=== PATIENT | female | born 1995 ===

== ENCOUNTER 2019-11-13 15:42 | Inpatient (IN) | payer MEDICAID ==
[2019-11-13 16:58] LABS: BLOOD UREA NITROGEN,BUN 10 mg/dL (7.0-18.0); CARBON DIOXIDE,CO2 21.9 mmol/L (21.0-32.0); CHLORIDE,CL 104 mmol/L (98-107); GLUCOSE RANDOM 91 mg/dL (74-106); POTASSIUM,K 4.4 mmol/L (3.5-5.1); SODIUM,NA 136 mmol/L (136-145)
[2019-11-13] MEDS ORDERED: Water For Irrigation,Sterile 1,000 ML Container IRR PRN (18:28)
[2019-11-13] MEDS ORDERED: Sodium Chloride 0.9% 2.5 ML Syringe FLUSH PRN (18:28)
[2019-11-13] MEDS ORDERED: Lidocaine 1% 50 ML MDV INJECT PRN (18:28)
[2019-11-13] MEDS ORDERED: Sodium Chloride 0.9% 10 ML SDV IV PRN (18:28)
[2019-11-13] MEDS ORDERED: Terbutaline 1 MG/ML SDV SUBCUT PRN (18:28)
[2019-11-13] MEDS ORDERED: Sodium Chloride 0.9% 10 ML Syringe FLUSH PRN (18:28)
[2019-11-13] MEDS ORDERED: Misoprostol 200 MCG Tab PO PRN (18:28)
[2019-11-13] MEDS ORDERED: Methylergonovine 0.2 MG/1 ML Amp IM PRN (18:28)
[2019-11-13] MEDS ORDERED: Butorphanol 1 MG/ML SDV IVPUSH PRN (18:28)
[2019-11-13] MEDS ORDERED: Tranexamic Acid 1,000 MG in Sodium Chloride 0.9% 100 ML IV PRN (18:28)
[2019-11-13] MEDS ORDERED: Ondansetron 4 MG/2 ML SDV IVPUSH PRN (18:28)
[2019-11-13] MEDS ORDERED: Carboprost Tromethamine 250 MCG/1 ML Amp IM PRN (18:28)
[2019-11-13] MEDS ORDERED: Nalbuphine 10 MG/1 ML Vial IVPUSH PRN (18:28)
[2019-11-13] MEDS ORDERED: Oxytocin/0.9 % Sodium Chloride 30 UNIT/500 ML BAG IV SCH ×2 (18:30)
[2019-11-13] MEDS ORDERED: NIFEdipine 30 MG Tab.ER PO ONE (18:32)
[2019-11-13] MEDS ORDERED: Misoprostol 25 MCG (1/4 of 100 MCG) Tab PO ONE (18:35)
[2019-11-13] MEDS ORDERED: NIFEdipine 30 MG Tab.ER ONE (18:54)
[2019-11-13] MEDS: Misoprostol 25 MCG (1/4 of 100 MCG) Tab VAG PRN (20:20)
[2019-11-14 00:49] LABS: BLOOD UREA NITROGEN,BUN 8 mg/dL (7.0-18.0); CARBON DIOXIDE,CO2 20.2 mmol/L (21.0-32.0); CHLORIDE,CL 106 mmol/L (98-107); GLUCOSE RANDOM 83 mg/dL (74-106); POTASSIUM,K 3.6 mmol/L (3.5-5.1); SODIUM,NA 138 mmol/L (136-145)
[2019-11-14] MEDS: Lactated Ringers 1,000 ML IV SCH ×4 (00:55→15:00)
[2019-11-14] MEDS: Misoprostol 25 MCG (1/4 of 100 MCG) Tab PO SCH ×3 (01:15→11:04)
[2019-11-14] MEDS: Misoprostol 25 MCG (1/4 of 100 MCG) Tab VAG PRN ×4 (01:18→11:05)
--- NOTE | 2019-11-14 13:12 | PCM.LDHP ---
L&D History of Present Illness - General Date of Service: 11/13/19 Admit Problem/Dx: Patient Status Order with Admit Dx/Problem 11/13/19 15:58 Patient Status [ADT] Routine 11/13/19 18:28 Patient Status [ADT] Routine Admission Diagnosis/Problem Admission Diagnosis/Problem - planned Source of Information: Patient History Limitations: Reports: No Limitations - History of Present Illness Pain Score: 5 Improves with: Reports: None Worsens with: Reports: None Associated Symptoms: Reports: N - Related Data Allergies/Adverse Reactions: Allergies Allergy/AdvReac Type Severity Reaction Status Date / Time No Known Allergies Allergy Verified 11/13/19 15:57 Past Medical History - Past Health History Medical/Surgical History: Denies Medical/Surgical History ER TECH History: Reports: Neurological History: Reports: Seizure - Infectious Disease History Infectious Disease History: Reports: Hepatitis B Social & Family History - Family History Family Medical History: Unobtainable - Tobacco Use Smoking Status *Q: Never Smoker Second Hand Smoke Exposure: No - Caffeine Use Caffeine Use: Reports: None - Recreational Drug Use Recreational Drug Use: No H&P Review of Systems - Review of Systems: Review Of Systems: See Below General: Reports: No Symptoms HEENT: Reports: No Symptoms Pulmonary: Reports: No Symptoms Cardiovascular: Reports: No Symptoms Gastrointestinal: Reports: No Symptoms Genitourinary: Reports: No Symptoms Musculoskeletal: Reports: No Symptoms Skin: Reports: No Symptoms Psychiatric: Reports: No Symptoms Neurological: Reports: No Symptoms Hematologic/Lymphatic: Reports: No Symptoms Immunologic: Reports: No Symptoms L&D Exam - Exam Exam: See Below - Vital Signs Vital Signs: Last Vital Signs Temp Pulse Resp BP 167/120 H 11/13/19 18:57 Pulse Ox Weight: 80.286 kg - OB Specific Fundal Height In cm: 36 Contraction Intensity: Mild Movement: Active Heart Tones: Present Presentation: Vertex - Exam General: Alert, Oriented HEENT: PERRLA, Conjunctiva Clear, EACs Clear, EOMI, Hearing Intact, Mucosa Moist & G. L. Garcia, Nares Patent, Normal Nasal Septum, Posterior Pharynx Clear, TMs Clear Neck: Supple, Trachea Midline Lungs: Clear to Auscultation, Normal Respiratory Effort Cardiovascular: Regular Rate, Regular Rhythm GI/Abdominal Exam: Normal Bowel Sounds, Soft, Non-Tender, No Organomegaly, No Distention, No Abnormal Bruit, No Mass, Pelvis Stable Rectal Exam: Normal Exam, Normal Rectal Tone Genitourinary: Normal external exam, Normal bimanual exam, Normal speculum exam Back Exam: Normal Inspection, Full Range of Motion Extremities: Normal Inspection, Normal Range of Motion, Non-Tender, No Pedal Edema, Normal Capillary Refill Skin: Warm, Dry, Intact Neurological: Cranial Nerves Intact, Reflexes Equal Bilateral Psychiatric: Alert, Normal Affect, Normal Mood - Patient Data Lab Results Last 24 hrs: Laboratory Results - last 24 hr 11/13/19 11/13/19 11/13/19 Range/Units 16:21 16:21 16:21 WBC 5.48 (4.0-11.0) K/uL RBC 3.78 L (4.30-5.90) M/uL Hgb 10.8 L (12.0-16.0) g/dL Hct 32.8 L (36.0-46.0) % MCV 86.8 (80.0-98.0) fL MCH 28.6 (27.0-32.0) pg MCHC 32.9 (31.0-37.0) g/dL RDW Std Deviation 42.5 (28.0-62.0) fl RDW Coeff of Ronda 13 (11.0-15.0) % Plt Count 222 (150-400) K/uL MPV 10.10 (7.40-12.00) fL Neut % (Auto) 53.8 (48.0-80.0) % Lymph % (Auto) 26.6 (16.0-40.0) % Ritchie % (Auto) 18.1 H (0.0-15.0) % Eos % (Auto) 1.3 (0.0-7.0) % Baso % (Auto) 0.2 (0.0-1.5) % Neut # (Auto) 3.0 (1.4-5.7) K/uL Lymph # (Auto) 1.5 (0.6-2.4) K/uL Ritchie # (Auto) 1.0 H (0.0-0.8) K/uL Eos # (Auto) 0.1 (0.0-0.7) K/uL Baso # (Auto) 0.0 (0.0-0.1) K/uL Nucleated RBC % 0.0 /100WBC Nucleated RBCs # 0 K/uL Sodium 136 (136-145) mmol/L Potassium 4.4 (3.5-5.1) mmol/L Chloride 104 (98-107) mmol/L Carbon Dioxide 21.9 (21.0-32.0) mmol/L BUN 10 (7.0-18.0) mg/dL Creatinine 0.7 (0.6-1.0) mg/dL Est Cr Clr Drug Dosing 131.74 mL/min Estimated GFR (MDRD) > 60.0 ml/min Glucose 91 (74-106) mg/dL Uric Acid 4.2 (2.6-7.2) mg/dL Calcium 8.5 (8.5-10.1) mg/dL Total Bilirubin 0.2 (0.2-1.0) mg/dL AST 27 (15-37) IU/L ALT 32 (14-63) IU/L Alkaline Phosphatase 177 H (46-116) U/L Total Protein 6.3 L (6.4-8.2) g/dL Albumin 2.4 L (3.4-5.0) g/dL Globulin 3.9 (2.6-4.0) g/dL Albumin/Globulin Ratio 0.6 L (0.9-1.6) Ur Random Creatinine mg/dL U Random Total Protein (<11.9) mg/dL Protein/Creatinin Ratio Blood Type O NEGATIVE Antibody Screen NEGATIVE 11/13/19 11/14/19 11/14/19 Range/Units 16:40 00:22 00:22 WBC 5.42 (4.0-11.0) K/uL RBC 3.65 L (4.30-5.90) M/uL Hgb 10.6 L (12.0-16.0) g/dL Hct 31.0 L (36.0-46.0) % MCV 84.9 (80.0-98.0) fL MCH 29.0 (27.0-32.0) pg MCHC 34.2 (31.0-37.0) g/dL RDW Std Deviation 38.6 (28.0-62.0) fl RDW Coeff of Ronda 13 (11.0-15.0) % Plt Count 208 (150-400) K/uL MPV 9.80 (7.40-12.00) fL Neut % (Auto) (48.0-80.0) % Lymph % (Auto) (16.0-40.0) % Ritchie % (Auto) (0.0-15.0) % Eos % (Auto) (0.0-7.0) % Baso % (Auto) (0.0-1.5) % Neut # (Auto) (1.4-5.7) K/uL Lymph # (Auto) (0.6-2.4) K/uL Ritchie # (Auto) (0.0-0.8) K/uL Eos # (Auto) (0.0-0.7) K/uL Baso # (Auto) (0.0-0.1) K/uL Nucleated RBC % /100WBC Nucleated RBCs # K/uL Sodium 138 (136-145) mmol/L Potassium 3.6 (3.5-5.1) mmol/L Chloride 106 (98-107) mmol/L Carbon Dioxide 20.2 L (21.0-32.0) mmol/L BUN 8 (7.0-18.0) mg/dL Creatinine 0.6 (0.6-1.0) mg/dL Est Cr Clr Drug Dosing 153.15 mL/min Estimated GFR (MDRD) > 60.0 ml/min Glucose 83 (74-106) mg/dL Uric Acid 4.4 (2.6-7.2) mg/dL Calcium 8.1 L (8.5-10.1) mg/dL Total Bilirubin 0.1 L (0.2-1.0) mg/dL AST 25 (15-37) IU/L ALT 32 (14-63) IU/L Alkaline Phosphatase 166 H (46-116) U/L Total Protein 5.9 L (6.4-8.2) g/dL Albumin 2.1 L (3.4-5.0) g/dL Globulin 3.8 (2.6-4.0) g/dL Albumin/Globulin Ratio 0.6 L (0.9-1.6) Ur Random Creatinine 15.4 mg/dL U Random Total Protein 20.1 H (<11.9) mg/dL Protein/Creatinin Ratio 1.3 Blood Type Antibody Screen Result Diagrams: 11/14/19 00:22 11/14/19 00:22 Problem List Initiated/Reviewed/Updated: Yes Orders Last 24hrs: Active Orders 24 hr Category Date Time Status Patient Status [ADT] Routine ADT 11/13/19 18:28 Active Bedrest Bathroom Privileges [RC] ASDIRECTED Care 11/13/19 18:28 Active Communication Order [RC] ASDIRECTED Care 11/13/19 18:28 Active Communication Order [RC] ASDIRECTED Care 11/13/19 18:28 Active Communication Order [RC] ASDIRECTED Care 11/13/19 18:28 Active Heart Tones [RC] CONTINUOUS Care 11/13/19 18:28 Active Non Stress Test [RC] PER UNIT ROUTINE Care 11/13/19 15:58 Active Non Stress Test [RC] PER UNIT ROUTINE Care 11/13/19 18:28 Active May Shower [RC] ASDIRECTED Care 11/13/19 18:28 Active Notify Provider [RC] PRN Care 11/13/19 18:28 Active Notify Provider [RC] PRN Care 11/13/19 18:28 Active Notify Provider [RC] PRN Care 11/13/19 18:28 Active Notify Provider [RC] STAT Care 11/13/19 18:28 Active Oxygen Therapy [RC] ASDIRECTED Care 11/13/19 18:28 Active Up ad Lucy [RC] ASDIRECTED Care 11/13/19 15:58 Active Up ad Lucy [RC] ASDIRECTED Care 11/13/19 18:28 Active Vaginal Exam [RC] Click to Edit Care 11/13/19 15:58 Active Vaginal Exam [RC] PRN Care 11/13/19 18:28 Active Vaginal Exam [RC] PRN Care 11/13/19 18:28 Active Vital Signs [RC] PER UNIT ROUTINE Care 11/13/19 15:58 Active Vital Signs [RC] PER UNIT ROUTINE Care 11/13/19 18:28 Active Vital Signs [RC] PER UNIT ROUTINE Care 11/13/19 18:28 Active RAPID PLASMA REAGIN, QUANT [REF] Routine Lab 11/13/19 16:21 Received Butorphanol [Stadol] Med 11/13/19 18:28 Active 1 mg IVPUSH Q1H PRN Carboprost Tromethamine [Hemabate DS] Med 11/13/19 18:28 Active 250 mcg IM ASDIRECTED PRN Lactated Ringers [Ringers, Lactated] 1,000 ml Med 11/13/19 18:30 Active IV ASDIRECTED Lidocaine 1% [Xylocaine 1%] Med 11/13/19 18:28 Active 50 ml INJECT ONETIME PRN Methylergonovine [Methergine] Med 11/13/19 18:28 Active 0.2 mg IM ASDIRECTED PRN Nalbuphine [Nubain] Med 11/13/19 18:28 Active 10 mg IVPUSH Q1H PRN Ondansetron [Zofran] Med 11/13/19 18:28 Active 4 mg IVPUSH Q6H PRN Oxytocin/0.9 % Sodium Chloride [Oxytocin 30 Unit/500 ML Med 11/13/19 18:30 Active -NS] 30 unit in 500 ml IV TITRATE Oxytocin/0.9 % Sodium Chloride [Oxytocin 30 Unit/500 ML Med 11/13/19 18:30 Active -NS] 30 unit in 500 ml IV TITRATE Patient's Own Medication [Ptom] Med 11/15/19 09:00 Active 1 each PO DAILY Patient's Own Medication [Ptom] Med 11/14/19 21:00 Active 1,000 each PO BID Patient's Own Medication [Ptom] Med 11/14/19 21:00 Active 2 each PO BID Sodium Chloride 0.9% [Normal Saline] Med 11/13/19 18:28 Active 10 ml IV ASDIRECTED PRN Sodium Chloride 0.9% [Saline Flush] Med 11/13/19 18:28 Active 10 ml FLUSH ASDIRECTED PRN Sodium Chloride 0.9% [Saline Flush] Med 11/13/19 18:28 Active 2.5 ml FLUSH ASDIRECTED PRN Terbutaline [Brethine] Med 11/13/19 18:28 Active 0.25 mg SUBCUT ASDIRECTED PRN Tranexamic Acid [Cyklokapron] 1,000 mg Med 11/13/19 18:28 Active Sodium Chloride 0.9% [Normal Saline] 100 ml IV ONETIME Water For Irrigation,Sterile [Sterile Water for Med 11/13/19 18:28 Active Irrigation] 1,000 ml IRR ASDIRECTED PRN miSOPROStoL [Cytotec] Med 11/13/19 18:28 Active 200 mcg PO ONETIME PRN miSOPROStoL [Cytotec] Med 11/14/19 01:30 Active 25 mcg PO Q4H miSOPROStoL [Cytotec] Med 11/13/19 18:28 Active 25 mcg VAG ONETIME PRN miSOPROStoL [Cytotec] Med 11/13/19 18:28 Active 25 mcg VAG Q4H PRN Scalp Electrode [WOMSER] Per Unit Routine Oth 11/13/19 18:28 Ordered May Take Own Home Medications [OM.PC] Routine Oth 11/14/19 10:03 Ordered Medication Administration Instruction [OM.PC] Q3H Oth 11/13/19 18:30 Ordered Peripheral IV Insertion Adult [OM.PC] Routine Oth 11/13/19 18:28 Ordered Resuscitation Status Routine Resus Stat 11/13/19 18:28 Ordered Medication Orders Butorphanol Tartrate (Stadol) 1 mg IVPUSH Q1H PRN PRN Reason: Pain Carboprost Tromethamine (Hemabate Ds) 250 mcg IM ASDIRECTED PRN PRN Reason: Post Hemorrhage Tranexamic Acid 1,000 mg/ (Sodium Chloride) 110 mls @ 660 mls/hr IV ONETIME PRN PRN Reason: Bleeding Lactated Ringer's (Ringers, Lactated) 1,000 mls @ 150 mls/hr IV ASDIRECTED KRUNAL Last Admin: 11/14/19 06:24 Dose: 150 mls/hr Infusion: 11/14/19 06:24 Dose: 150 mls/hr Admin: 11/14/19 00:55 Dose: 150 mls/hr Oxytocin/Sodium Chloride (Oxytocin 30 Unit/500 Ml-Ns) 30 unit in 500 mls @ 500 mls/hr IV TITRATE KRUNAL Oxytocin/Sodium Chloride (Oxytocin 30 Unit/500 Ml-Ns) 30 unit in 500 mls @ 2 mls/hr IV TITRATE [facility]; Protocol Lidocaine HCl (Xylocaine 1%) 50 ml INJECT ONETIME PRN PRN Reason: Laceration repair Methylergonovine Maleate (Methergine) 0.2 mg IM ASDIRECTED PRN PRN Reason: Post Hemorrhage Misoprostol (Cytotec) 200 mcg PO ONETIME PRN PRN Reason: Post Hemorrhage Misoprostol (Cytotec) 25 mcg VAG ONETIME PRN PRN Reason: Cervical Ripening Last Admin: 11/14/19 11:05 Dose: 25 mcg Admin: 11/13/19 20:20 Dose: 25 mcg Misoprostol (Cytotec) 25 mcg VAG Q4H PRN PRN Reason: Cervical Ripening Last Admin: 11/14/19 11:05 Dose: 25 mcg Admin: 11/14/19 06:24 Dose: 25 mcg Admin: 11/14/19 01:18 Dose: 25 mcg Misoprostol (Cytotec) 25 mcg PO Q4H KRUNAL Last Admin: 11/14/19 11:04 Dose: 25 mcg Admin: 11/14/19 06:24 Dose: 25 mcg Admin: 11/14/19 01:15 Dose: 25 mcg Nalbuphine HCl (Nubain) 10 mg IVPUSH Q1H PRN PRN Reason: Pain (severe 7-10) Last Admin: 11/14/19 03:45 Dose: 10 mg Ondansetron HCl (Zofran) 4 mg IVPUSH Q6H PRN PRN Reason: Nausea/Vomiting Levetiracetam 500 Mg (Tab) 1,000 each PO BID KRUNAL Folic Acid 1 Mg Tab 2 each PO BID KRUNAL Multivitamin And Multimineral With Iron Tab 1 each PO DAILY KRUNAL Sodium Chloride (Saline Flush) 10 ml FLUSH ASDIRECTED PRN PRN Reason: Keep Vein Open Sodium Chloride (Saline Flush) 2.5 ml FLUSH ASDIRECTED PRN PRN Reason: Keep Vein Open Sodium Chloride (Normal Saline) 10 ml IV ASDIRECTED PRN PRN Reason: IV Use Sterile Water (Sterile Water For Irrigation) 1,000 ml IRR ASDIRECTED PRN PRN Reason: delivery Terbutaline Sulfate (Brethine) 0.25 mg SUBCUT ASDIRECTED PRN PRN Reason: Tacysystole Assessment/Plan Comment:: This is a 23 years old patient nulliparous she is followed in our clinic primarily by our nurse harness and bag inspector Michelle Lubin she is 36+5 she's presented to the clinic for her regular OB visit however during the assessment she found to have an elevated blood pressure and swelling of the leg her blood pressure is ranging between 160/106-150/100. Flexes a +1 the patient denied any headache or any black spontaneous in her vision however because of the elevated blood pressure I am sending the patient to labor and delivery for NST assess and evaluate blood pressure most likely will boni end up admitting the patient for possible induction. Her blood pressure continued to be elevated she may need to have a section as needed
--- NOTE | 2019-11-14 13:32 | PCM.PN ---
- General Info Date of Service: 11/14/19 Admission Dx/Problem (Free Text): Patient Status Order with Admit Dx/Problem 11/13/19 15:58 Patient Status [ADT] Routine 11/13/19 18:28 Patient Status [ADT] Routine Admission Diagnosis/Problem Admission Diagnosis/Problem - planned Functional Status: Reports: Pain Controlled, Tolerating Diet - Review of Systems General: Reports: No Symptoms HEENT: Reports: No Symptoms Pulmonary: Reports: No Symptoms Cardiovascular: Reports: No Symptoms Gastrointestinal: Reports: No Symptoms Genitourinary: Reports: No Symptoms Musculoskeletal: Reports: No Symptoms Skin: Reports: No Symptoms Neurological: Reports: No Symptoms Psychiatric: Reports: No Symptoms - Patient Data Vitals - Most Recent: Last Vital Signs Temp Pulse Resp BP 167/120 H 11/13/19 18:57 Pulse Ox Weight - Most Recent: 80.286 kg Lab Results Last 24 Hours: Laboratory Results - last 24 hr 11/13/19 11/13/19 11/13/19 Range/Units 16:21 16:21 16:21 WBC 5.48 (4.0-11.0) K/uL RBC 3.78 L (4.30-5.90) M/uL Hgb 10.8 L (12.0-16.0) g/dL Hct 32.8 L (36.0-46.0) % MCV 86.8 (80.0-98.0) fL MCH 28.6 (27.0-32.0) pg MCHC 32.9 (31.0-37.0) g/dL RDW Std Deviation 42.5 (28.0-62.0) fl RDW Coeff of Ronda 13 (11.0-15.0) % Plt Count 222 (150-400) K/uL MPV 10.10 (7.40-12.00) fL Neut % (Auto) 53.8 (48.0-80.0) % Lymph % (Auto) 26.6 (16.0-40.0) % Claiborne % (Auto) 18.1 H (0.0-15.0) % Eos % (Auto) 1.3 (0.0-7.0) % Baso % (Auto) 0.2 (0.0-1.5) % Neut # (Auto) 3.0 (1.4-5.7) K/uL Lymph # (Auto) 1.5 (0.6-2.4) K/uL Cla[place]orne # (Auto) 1.0 H (0.0-0.8) K/uL Eos # (Auto) 0.1 (0.0-0.7) K/uL Baso # (Auto) 0.0 (0.0-0.1) K/uL Nucleated RBC % 0.0 /100WBC Nucleated RBCs # 0 K/uL Sodium 136 (136-145) mmol/L Potassium 4.4 (3.5-5.1) mmol/L Chloride 104 (98-107) mmol/L Carbon Dioxide 21.9 (21.0-32.0) mmol/L BUN 10 (7.0-18.0) mg/dL Creatinine 0.7 (0.6-1.0) mg/dL Est Cr Clr Drug Dosing 131.74 mL/min Estimated GFR (MDRD) > 60.0 ml/min Glucose 91 (74-106) mg/dL Uric Acid 4.2 (2.6-7.2) mg/dL Calcium 8.5 (8.5-10.1) mg/dL Total Bilirubin 0.2 (0.2-1.0) mg/dL AST 27 (15-37) IU/L ALT 32 (14-63) IU/L Alkaline Phosphatase 177 H (46-116) U/L Total Protein 6.3 L (6.4-8.2) g/dL Albumin 2.4 L (3.4-5.0) g/dL Globulin 3.9 (2.6-4.0) g/dL Albumin/Globulin Ratio 0.6 L (0.9-1.6) Ur Random Creatinine mg/dL U Random Total Protein (<11.9) mg/dL Protein/Creatinin Ratio Blood Type O NEGATIVE Antibody Screen NEGATIVE 11/13/19 11/14/19 11/14/19 Range/Units 16:40 00:22 00:22 WBC 5.42 (4.0-11.0) K/uL RBC 3.65 L (4.30-5.90) M/uL Hgb 10.6 L (12.0-16.0) g/dL Hct 31.0 L (36.0-46.0) % MCV 84.9 (80.0-98.0) fL MCH 29.0 (27.0-32.0) pg MCHC 34.2 (31.0-37.0) g/dL RDW Std Deviation 38.6 (28.0-62.0) fl RDW Coeff of Ronda 13 (11.0-15.0) % Plt Count 208 (150-400) K/uL MPV 9.80 (7.40-12.00) fL Neut % (Auto) (48.0-80.0) % Lymph % (Auto) (16.0-40.0) % Cla[place]orne % (Auto) (0.0-15.0) % Eos % (Auto) (0.0-7.0) % Baso % (Auto) (0.0-1.5) % Neut # (Auto) (1.4-5.7) K/uL Lymph # (Auto) (0.6-2.4) K/uL Claiborne # (Auto) (0.0-0.8) K/uL Eos # (Auto) (0.0-0.7) K/uL Baso # (Auto) (0.0-0.1) K/uL Nucleated RBC % /100WBC Nucleated RBCs # K/uL Sodium 138 (136-145) mmol/L Potassium 3.6 (3.5-5.1) mmol/L Chloride 106 (98-107) mmol/L Carbon Dioxide 20.2 L (21.0-32.0) mmol/L BUN 8 (7.0-18.0) mg/dL Creatinine 0.6 (0.6-1.0) mg/dL Est Cr Clr Drug Dosing 153.15 mL/min Estimated GFR (MDRD) > 60.0 ml/min Glucose 83 (74-106) mg/dL Uric Acid 4.4 (2.6-7.2) mg/dL Calcium 8.1 L (8.5-10.1) mg/dL Total Bilirubin 0.1 L (0.2-1.0) mg/dL AST 25 (15-37) IU/L ALT 32 (14-63) IU/L Alkaline Phosphatase 166 H (46-116) U/L Total Protein 5.9 L (6.4-8.2) g/dL Albumin 2.1 L (3.4-5.0) g/dL Globulin 3.8 (2.6-4.0) g/dL Albumin/Globulin Ratio 0.6 L (0.9-1.6) Ur Random Creatinine 15.4 mg/dL U Random Total Protein 20.1 H (<11.9) mg/dL Protein/Creatinin Ratio 1.3 Blood Type Antibody Screen Med Orders - Current: Current Medications Butorphanol Tartrate (Stadol) 1 mg IVPUSH Q1H PRN PRN Reason: Pain Carboprost Tromethamine (Hemabate Ds) 250 mcg IM ASDIRECTED PRN PRN Reason: Post Hemorrhage Tranexamic Acid 1,000 mg/ (Sodium Chloride) 110 mls @ 660 mls/hr IV ONETIME PRN PRN Reason: Bleeding Lactated Ringer's (Ringers, Lactated) 1,000 mls @ 150 mls/hr IV ASDIRECTED KRUNAL Last Admin: 11/14/19 06:24 Dose: 150 mls/hr Oxytocin/Sodium Chloride (Oxytocin 30 Unit/500 Ml-Ns) 30 unit in 500 mls @ 500 mls/hr IV TITRATE KRUNAL Oxytocin/Sodium Chloride (Oxytocin 30 Unit/500 Ml-Ns) 30 unit in 500 mls @ 2 mls/hr IV TITRATE KRUNAL; Protocol Lidocaine HCl (Xylocaine 1%) 50 ml INJECT ONETIME PRN PRN Reason: Laceration repair Methylergonovine Maleate (Methergine) 0.2 mg IM ASDIRECTED PRN PRN Reason: Post Hemorrhage Misoprostol (Cytotec) 200 mcg PO ONETIME PRN PRN Reason: Post Hemorrhage Misoprostol (Cytotec) 25 mcg VAG ONETIME PRN PRN Reason: Cervical Ripening Last Admin: 11/14/19 11:05 Dose: 25 mcg Misoprostol (Cytotec) 25 mcg VAG Q4H PRN PRN Reason: Cervical Ripening Last Admin: 11/14/19 11:05 Dose: 25 mcg Misoprostol (Cytotec) 25 mcg PO Q4H KRUNAL Last Admin: 11/14/19 11:04 Dose: 25 mcg Nalbuphine HCl (Nubain) 10 mg IVPUSH Q1H PRN PRN Reason: Pain (severe 7-10) Last Admin: 11/14/19 03:45 Dose: 10 mg Ondansetron HCl (Zofran) 4 mg IVPUSH Q6H PRN PRN Reason: Nausea/Vomiting Levetiracetam 500 Mg (Tab) 1,000 each PO BID KRUNAL Folic Acid 1 Mg Tab 2 each PO BID KRUNAL Multivitamin And Multimineral With Iron Tab 1 each PO DAILY KRUNAL Sodium Chloride (Saline Flush) 10 ml FLUSH ASDIRECTED PRN PRN Reason: Keep Vein Open Sodium Chloride (Saline Flush) 2.5 ml FLUSH ASDIRECTED PRN PRN Reason: Keep Vein Open Sodium Chloride (Normal Saline) 10 ml IV ASDIRECTED PRN PRN Reason: IV Use Sterile Water (Sterile Water For Irrigation) 1,000 ml IRR ASDIRECTED PRN PRN Reason: delivery Terbutaline Sulfate (Brethine) 0.25 mg SUBCUT ASDIRECTED PRN PRN Reason: Tacysystole Discontinued Medications Misoprostol (Cytotec) 25 mcg PO ONETIME ONE Stop: 11/13/19 18:36 Last Admin: 11/13/19 20:20 Dose: 25 mcg Nifedipine (Procardia Xl) 60 mg PO ONETIME ONE Stop: 11/13/19 18:33 Last Admin: 11/13/19 18:57 Dose: 60 mg Nifedipine (Procardia Xl) Confirm Administered Dose 60 mg .ROUTE .STK-MED ONE Stop: 11/13/19 18:55 - Exam General: Alert, Oriented, Cooperative, No Acute Distress Lungs: Normal Respiratory Effort GI/Abdominal Exam: Soft, Non-Tender, Pelvis Stable (Female) Exam: Normal External Exam, Normal Bimanual Exam, Cervical Discharge , Cervical Fluid (AROM clear fluid 3/70/-2 soft ant) Back Exam: Normal Inspection, Full Range of Motion Extremities: Normal Inspection, Normal Range of Motion, Non-Tender, No Pedal Edema Skin: Warm, Dry, Intact Neurological: No New Focal Deficit, Normal Speech, Normal Tone, Strength Equal Bilateral, Sensation Intact Psy/Mental Status: Alert, Normal Affect, Normal Mood Sepsis Event Note - Evaluation Sepsis Screening Result: No Definite Risk - Problem List & Annotations (1) Supervision of normal IUP (intrauterine ) in primigravida SNOMED Code(s): 87145345, 722925879, 600619991, [id number] Code(s): Z34.00 - ENCNTR FOR SUPRVSN OF NORMAL FIRST , UNSP TRIMESTER Status: Acute Priority: High Current Visit: Yes Qualifiers: Trimester: third trimester Qualified Code(s): Z34.03 - Encounter for supervision of normal first , third trimester (2) Elevated blood pressure affecting in third trimester, antepartum SNOMED Code(s): 04216129, 62882484, [id number] Code(s): O16.3 - UNSPECIFIED MATERNAL HYPERTENSION, THIRD TRIMESTER Status : Acute Priority: High Current Visit: Yes - Problem List Review Problem List Initiated/Reviewed/Updated: Yes - My Orders Last 24 Hours: Labor note A: VSS, AF, BP 140/90, denies ISLAS, blurred vision or epigastric pain. SVE 3/70/- 2 soft ant AROM clear fluid P: Start pitocin, disc PCS if variable decells continue. Dr Pandey updated. - Plan Plan:: This is a 23 years old patient nulliparous she is followed in our clinic primarily by our nurse soil science teacher Michelle Lubin she is 36+5 she's presented to the clinic for her regular OB visit however during the assessment she found to have an elevated blood pressure and swelling of the leg her blood pressure is ranging between 160/106-150/100. Flexes a +1 the patient denied any headache or any black spontaneous in her vision however because of the elevated blood pressure I am sending the patient to labor and delivery for NST assess and evaluate blood pressure most likely will boni end up admitting the patient for possible induction. Her blood pressure continued to be elevated she may need to have a section as needed
[2019-11-14] MEDS ORDERED: Ropivacaine HCl/PF 100 ML ONE (14:06)
[2019-11-14] MEDS ORDERED: fentaNYL 100 MCG/2 ML SDV ONE (14:07)
[2019-11-14] MEDS ORDERED: Ropivacaine 0.2% 2 MG/ML 20 ML SDV ONE (14:08)
--- NOTE | 2019-11-14 15:18 | PCM.PREANE ---
Preanesthetic Assessment - Anesthesia/Transfusion/Family Hx Anesthesia History: No Prior Anesthesia Family History of Anesthesia Reaction: No Transfusion History: No Prior Transfusion(s) - Review of Systems General: No Symptoms Pulmonary: No Symptoms Cardiovascular: No Symptoms Gastrointestinal: No Symptoms Neurological: No Symptoms Other: Reports: None (Denies any personal or family hx of bleeding or clotting problems) - Physical Assessment Vital Signs: Last Vital Signs Temp Pulse Resp BP 167/120 H 11/13/19 18:57 Pulse Ox Height: 1.75 m Weight: 80.286 kg ASA Class: 3 Mental Status: Alert & Oriented x3 Airway Class: Mallampati = 3 - Lab Values: Laboratory Last Values WBC 5.42 K/uL (4.0-11.0) 11/14/19 00:22 RBC 3.65 M/uL (4.30-5.90) L 11/14/19 00:22 Hgb 10.6 g/dL (12.0-16.0) L 11/14/19 00:22 Hct 31.0 % (36.0-46.0) L 11/14/19 00:22 MCV 84.9 fL (80.0-98.0) 11/14/19 00:22 MCH 29.0 pg (27.0-32.0) 11/14/19 00:22 MCHC 34.2 g/dL (31.0-37.0) 11/14/19 00:22 RDW Std Deviation 38.6 fl (28.0-62.0) 11/14/19 00:22 RDW Coeff of Ronda 13 % (11.0-15.0) 11/14/19 00:22 Plt Count 208 K/uL (150-400) 11/14/19 00:22 MPV 9.80 fL (7.40-12.00) 11/14/19 00:22 Neut % (Auto) 53.8 % (48.0-80.0) 11/13/19 16:21 Lymph % (Auto) 26.6 % (16.0-40.0) 11/13/19 16:21 [place] % (Auto) 18.1 % (0.0-15.0) H 11/13/19 16:21 Eos % (Auto) 1.3 % (0.0-7.0) 11/13/19 16:21 Baso % (Auto) 0.2 % (0.0-1.5) 11/13/19 16:21 Neut # (Auto) 3.0 K/uL (1.4-5.7) 11/13/19 16:21 Lymph # (Auto) 1.5 K/uL (0.6-2.4) 11/13/19 16:21 [place] # (Auto) 1.0 K/uL (0.0-0.8) H 11/13/19 16:21 Eos # (Auto) 0.1 K/uL (0.0-0.7) 11/13/19 16:21 Baso # (Auto) 0.0 K/uL (0.0-0.1) 11/13/19 16:21 Nucleated RBC % 0.0 /100WBC 11/13/19 16:21 Nucleated RBCs # 0 K/uL 11/13/19 16:21 Sodium 138 mmol/L (136-145) 11/14/19 00:22 Potassium 3.6 mmol/L (3.5-5.1) 11/14/19 00:22 Chloride 106 mmol/L (98-107) 11/14/19 00:22 Carbon Dioxide 20.2 mmol/L (21.0-32.0) L 11/14/19 00:22 BUN 8 mg/dL (7.0-18.0) 11/14/19 00:22 Creatinine 0.6 mg/dL (0.6-1.0) 11/14/19 00:22 Est Cr Clr Drug Dosing 153.15 mL/min 11/14/19 00:22 Estimated GFR (MDRD) > 60.0 ml/min 11/14/19 00:22 Glucose 83 mg/dL (74-106) 11/14/19 00:22 Uric Acid 4.4 mg/dL (2.6-7.2) 11/14/19 00:22 Calcium 8.1 mg/dL (8.5-10.1) L 11/14/19 00:22 Total Bilirubin 0.1 mg/dL (0.2-1.0) L 11/14/19 00:22 AST 25 IU/L (15-37) 11/14/19 00:22 ALT 32 IU/L (14-63) 11/14/19 00:22 Alkaline Phosphatase 166 U/L (46-116) H 11/14/19 00:22 Total Protein 5.9 g/dL (6.4-8.2) L 11/14/19 00:22 Albumin 2.1 g/dL (3.4-5.0) L 11/14/19 00:22 Globulin 3.8 g/dL (2.6-4.0) 11/14/19 00:22 Albumin/Globulin Ratio 0.6 (0.9-1.6) L 11/14/19 00:22 Ur Random Creatinine 15.4 mg/dL 11/13/19 16:40 U Random Total Protein 20.1 mg/dL (<11.9) H 11/13/19 16:40 Protein/Creatinin Ratio 1.3 11/13/19 16:40 Blood Type O NEGATIVE 11/13/19 16:21 Antibody Screen NEGATIVE 11/13/19 16:21 - Allergies Allergies/Adverse Reactions: Allergies Allergy/AdvReac Type Severity Reaction Status Date / Time No Known Allergies Allergy Verified 11/13/19 15:57 - Anesthesia Plan Free Text/Narrative:: Patient has many questions that were answered prior to epidural. She stated that she was told she had to have an epidural by her doctor. I assured her that I would only do an epidural if it was what she wanted and that we were not forcing her to have one. Many risks, including paralysis were discussed because she "wanted to know the bad things" She also does not want IV medication to go to the baby and then stated "let's just do this". - Acknowledgements Anesthesia Type Planned: Epidural Pt an Appropriate Candidate for the Planned Anesthesia: Yes Alternatives and Risks of Anesthesia Discussed w Pt/Guardian: Yes Pt/Guardian Understands and Agrees with Anesthesia Plan: Yes PreAnesthesia Questionnaire - Past Health History Medical/Surgical History: Denies Medical/Surgical History SKATE HOP History: Reports: Neurological History: Reports: Seizure - Infectious Disease History Infectious Disease History: Reports: Hepatitis B - SUBSTANCE USE Smoking Status *Q: Never Smoker Second Hand Smoke Exposure: No Recreational Drug Use History: No - CURRENT (IN HOUSE) MEDS Current Meds: Current Medications Butorphanol Tartrate (Stadol) 1 mg IVPUSH Q1H PRN PRN Reason: Pain Carboprost Tromethamine (Hemabate Ds) 250 mcg IM ASDIRECTED PRN PRN Reason: Post Hemorrhage Tranexamic Acid 1,000 mg/ (Sodium Chloride) 110 mls @ 660 mls/hr IV ONETIME PRN PRN Reason: Bleeding Lactated Ringer's (Ringers, Lactated) 1,000 mls @ 150 mls/hr IV ASDIRECTED KRUNAL Last Admin: 11/14/19 06:24 Dose: 150 mls/hr Oxytocin/Sodium Chloride (Oxytocin 30 Unit/500 Ml-Ns) 30 unit in 500 mls @ 500 mls/hr IV TITRATE KRUNAL Oxytocin/Sodium Chloride (Oxytocin 30 Unit/500 Ml-Ns) 30 unit in 500 mls @ 2 mls/hr IV TITRATE KRUNAL; Protocol Lidocaine HCl (Xylocaine 1%) 50 ml INJECT ONETIME PRN PRN Reason: Laceration repair Methylergonovine Maleate (Methergine) 0.2 mg IM ASDIRECTED PRN PRN Reason: Post Hemorrhage Misoprostol (Cytotec) 200 mcg PO ONETIME PRN PRN Reason: Post Hemorrhage Misoprostol (Cytotec) 25 mcg VAG ONETIME PRN PRN Reason: Cervical Ripening Last Admin: 11/14/19 11:05 Dose: 25 mcg Misoprostol (Cytotec) 25 mcg VAG Q4H PRN PRN Reason: Cervical Ripening Last Admin: 11/14/19 11:05 Dose: 25 mcg Misoprostol (Cytotec) 25 mcg PO Q4H KRUNAL Last Admin: 11/14/19 11:04 Dose: 25 mcg Nalbuphine HCl (Nubain) 10 mg IVPUSH Q1H PRN PRN Reason: Pain (severe 7-10) Last Admin: 11/14/19 03:45 Dose: 10 mg Ondansetron HCl (Zofran) 4 mg IVPUSH Q6H PRN PRN Reason: Nausea/Vomiting Levetiracetam 500 Mg (Tab) 1,000 each PO BID [facility] Folic Acid 1 Mg Tab 2 each PO BID [facility] Multivitamin And Multimineral With Iron Tab 1 each PO DAILY [facility] Sodium Chloride (Saline Flush) 10 ml FLUSH ASDIRECTED PRN PRN Reason: Keep Vein Open Sodium Chloride (Saline Flush) 2.5 ml FLUSH ASDIRECTED PRN PRN Reason: Keep Vein Open Sodium Chloride (Normal Saline) 10 ml IV ASDIRECTED PRN PRN Reason: IV Use Sterile Water (Sterile Water For Irrigation) 1,000 ml IRR ASDIRECTED PRN PRN Reason: delivery Terbutaline Sulfate (Brethine) 0.25 mg SUBCUT ASDIRECTED PRN PRN Reason: Tacysystole Discontinued Medications Fentanyl (Sublimaze) Confirm Administered Dose 300 mcg .ROUTE .STK-MED ONE Stop: 11/14/19 14:08 Ropivacaine (Naropin 0.2%) Confirm Administered Dose 100 mls @ as directed .ROUTE .STK-MED ONE Stop: 11/14/19 14:07 Misoprostol (Cytotec) 25 mcg PO ONETIME ONE Stop: 11/13/19 18:36 Last Admin: 11/13/19 20:20 Dose: 25 mcg Nifedipine (Procardia Xl) 60 mg PO ONETIME ONE Stop: 11/13/19 18:33 Last Admin: 11/13/19 18:57 Dose: 60 mg Nifedipine (Procardia Xl) Confirm Administered Dose 60 mg .ROUTE .STK-MED ONE Stop: 11/13/19 18:55 Ropivacaine (Naropin 0.2%) Confirm Administered Dose 20 ml .ROUTE .STK-MED ONE Stop: 11/14/19 14:09
[2019-11-14] MEDS ORDERED: Morphine PF 10 MG/10 ML SDV ONE (16:38)
[2019-11-14] MEDS ORDERED: Oxytocin 10 Units/1 ML SDV ONE (16:38)
[2019-11-14] MEDS ORDERED: Ondansetron 4 MG/2 ML SDV ONE (16:46)
[2019-11-14] MEDS ORDERED: ceFAZolin 1 GM Vial ONE (17:05)
[2019-11-14] MEDS ORDERED: Sodium Chloride 0.9% 20 ML ONE (17:05)
[2019-11-14] MEDS ORDERED: Citric Acid/Sodium Citrate Solution 30 ML Cup ONE (17:07)
[2019-11-14] MEDS ORDERED: Octyl 2-Cyanoacrylate 1 Tube ONE (17:40)
[2019-11-14] MEDS ORDERED: Naloxone 0.4 MG/ML Syringe IVPUSH PRN (17:43)
[2019-11-14] MEDS ORDERED: diphenhydrAMINE 50 MG/ML SDV IVPUSH PRN (17:43)
[2019-11-14] MEDS ORDERED: fentaNYL 100 MCG/2 ML SDV IVPUSH PRN (17:43)
[2019-11-14] MEDS ORDERED: Nalbuphine 10 MG/1 ML Vial IVPUSH PRN (17:43)
[2019-11-14] MEDS ORDERED: Ondansetron 4 MG/2 ML SDV IVPUSH PRN ×2 (17:43→17:49)
[2019-11-14] MEDS ORDERED: Acetaminophen/oxyCODONE 325-5 MG Tab PO PRN ×2 (17:43→17:49)
[2019-11-14] MEDS ORDERED: Lanolin 100% Cream 7 GM Tube TOP PRN (17:49)
[2019-11-14] MEDS ORDERED: Methylergonovine 0.2 MG/1 ML Amp IM PRN (17:49)
[2019-11-14] MEDS ORDERED: Tranexamic Acid 1,000 MG in Sodium Chloride 0.9% 100 ML IV PRN (17:49)
[2019-11-14] MEDS ORDERED: Bisacodyl 10 MG Supp RECTAL PRN (17:49)
[2019-11-14] MEDS ORDERED: Misoprostol 200 MCG Tab RECTAL PRN (17:49)
[2019-11-14] MEDS ORDERED: Oxytocin 10 Units/1 ML SDV IM PRN (17:49)
--- NOTE | 2019-11-14 17:52 | PCM.OPNOTE ---
- General Post-Op/Procedure Note Date of Surgery/Procedure: 11/14/19 Operative Procedure(s): Primary C/section. Pre Op Diagnosis: [id number] Post-Op Diagnosis: Same Anesthesia Technique: Epidural Primary Surgeon: Christopher Pandey Glass Block Bender: Michelle Lubin EBL in mLs: 600 Complications: None Condition: Good
[2019-11-14] MEDS ORDERED: Lactated Ringers 1,000 ML IV SCH (18:00)
[2019-11-14] MEDS: Ketorolac 30 MG/ML SDV IVPUSH SCH (18:28)
--- NOTE | 2019-11-14 18:40 | PCM.POSTAN ---
POST ANESTHESIA ASSESSMENT - MENTAL STATUS Mental Status: Alert, Oriented - VITAL SIGNS Vital Signs: Last Vital Signs Temp 36.8 C 11/14/19 18:03 Pulse 76 11/14/19 18:30 Resp 19 11/14/19 18:30 BP 133/100 H 11/14/19 18:30 Pulse Ox 95 11/14/19 18:30 - RESPIRATORY Respiratory Status: Respiratory Rate WNL, Airway Patent, O2 Saturation Stable - CARDIOVASCULAR CV Status: Pulse Rate WNL, Blood Pressure Stable - GASTROINTESTINAL GI Status: No Symptoms - POST OP HYDRATION Hydration Status: Adequate & Stable
--- NOTE | 2019-11-14 18:41 | OR ---
SURGEON: Christopher Pandey MD DATE OF PROCEDURE: PREOPERATIVE DIAGNOSES: 1. Intrauterine , 37 weeks. 2. -induced hypertension. 3. Unsuccessful induction, intolerance. POSTOPERATIVE DIAGNOSES: 1. Intrauterine , 37 weeks. 2. -induced hypertension. 3. Unsuccessful induction, intolerance. OPERATION PERFORMED: Primary low-transverse section. PRIMARY SURGEON: Christopher Pandey MD. CARBON BRUSH MAKER: Michelle Lubin CNM. ANESTHESIA: Epidural. Ana Cristina Louis and Dr. Bautista. ESTIMATED BLOOD LOSS: 600 mL. COMPLICATIONS: None. FINDINGS: Male fetus. Cried immediately. score and the weight are not available at the time of the dictation. INDICATION FOR SURGERY: This patient is 37 weeks. She is primigravida. She is followed in our clinic primarily by our nurse peeler operator. She came in yesterday for her routine OB visit. She was found to have elevated blood pressures. Her blood pressure is ranging between 160/110 to 150/105. She was admitted to Labor and Delivery for evaluation. Later on, she was admitted for induction. An attempt to induce her with Cytotec was done. The patient progressed to 3 cm. She had an artificial rupture of the membrane, which is with a clear fluid. She had epidural anesthesia, which has helped a lot with her blood pressure. However, the patient started having like rather flat heart rate with multiple variable decelerations and spontaneously without any contractions. It is deemed that it is a intolerance, remote from delivery, and after explaining this to the parent, a decision made to do primary low-transverse section. PROCEDURE IN DETAIL: The patient was brought to the OR, properly identified, and after adequate level of epidural anesthesia with a Remy catheter in the bladder, the patient was prepped and draped in sterile fashion as usual. Low transverse Pfannenstiel skin incision was done. Rachel's fascia and rectal fascia were opened in direction of the incision. The 2 recti muscles were and peritoneal cavity was entered. Bladder flap was raised in the usual manner pushing the bladder away from the lower uterine segment. Low transverse uterine incision was done and extended manually with the hand. Fetus was in occiput posterior vertex presentation, delivered without any problem. Cried immediately. Handed to the engineer design and construction, , for resuscitation who was present at the time of the delivery. The placenta delivered spontaneous, complete, and intact and repair of the lower uterine segment was done with 2-0 Vicryl continuous interlocking in 2 layers. Reperitonealization done with 3-0 Vicryl continuous and then the peritoneal cavity evacuated completely from all blood and blood clot and closed with 3-0 Vicryl continuous. The rectus fascia closed with #1 PDS single strand continuous. Rachel's fascia with 3-0 Vicryl continuous and the skin with 3-0 Vicryl on a Juan needle in a subcuticular fashion and Dermabond. Instrument and sponge count was correct. The patient tolerated the procedure well, went to recovery room in stable general condition. JEWEL DUMONT /[id number]
[2019-11-14] MEDS: NIFEdipine 30 MG Tab.ER PO SCH (19:33)
[2019-11-14] MEDS: Docusate Sodium 100 MG Cap PO SCH (20:40)
[2019-11-14] MEDS: levETIRAcetam 500 MG Tab PO SCH (20:41)
[2019-11-14] MEDS: Folic Acid 1 MG Tab PO SCH (20:42)
[2019-11-14] MEDS: diphenhydrAMINE 50 MG/ML SDV IVPUSH PRN (22:26)
--- NOTE | 2019-11-15 01:24 | PCM.SN ---
- Free Text/Narrative Note: Called by nursing supervisor powdered metal for IV start. 20g angiocath right ac x 1 attempt. Flushes easily. Secured with tegaderm and tape.
[2019-11-15] MEDS: Ketorolac 30 MG/ML SDV IVPUSH SCH ×5 (01:34→21:37)
--- NOTE | 2019-11-15 07:38 | PCM48HPAN ---
Post Anesthesia Note - EVALUATION WITHIN 48HRS OF ANESTHETIC Vital Signs in Normal Range: Yes Patient Participated in Evaluation: Yes Respiratory Function Stable: Yes Airway Patent: Yes Cardiovascular Function Stable: Yes Hydration Status Stable: Yes Pain Control Satisfactory: Yes Nausea and Vomiting Control Satisfactory: Yes Mental Status Recovered: Yes Vital Signs: Last Vital Signs Temp 36.6 C 11/15/19 04:32 Pulse 81 11/15/19 06:00 Resp 17 11/15/19 06:00 BP 126/88 11/15/19 06:00 Pulse Ox 100 11/15/19 06:00 - COMMENTS/OBSERVATIONS Free Text/Narrative:: States she just has some itching but otherwise doing well today and denies any other complaints.
[2019-11-15] MEDS: diphenhydrAMINE 50 MG/ML SDV IVPUSH PRN ×2 (07:50→16:35)
[2019-11-15] MEDS: levETIRAcetam 500 MG Tab PO SCH ×2 (09:13→21:30)
[2019-11-15] MEDS: Folic Acid 1 MG Tab PO SCH ×2 (09:13→21:31)
[2019-11-15] MEDS: Prenatal Multivitamin and Multimineral with Iron Tab PO SCH (09:15)
[2019-11-15] MEDS: Docusate Sodium 100 MG Cap PO SCH ×2 (09:16→21:31)
[2019-11-15] MEDS: NIFEdipine 30 MG Tab.ER PO SCH (09:16)
[2019-11-15] MEDS ORDERED: NIFEdipine 30 MG Tab.ER PO ONE (17:33)
[2019-11-15] MEDS: Misoprostol 25 MCG (1/4 of 100 MCG) Tab PO SCH (20:30)
[2019-11-15] MEDS ORDERED: Misoprostol 25 MCG (1/4 of 100 MCG) Tab PO ONE (20:31)
[2019-11-15] MEDS ORDERED: Ketorolac 30 MG/ML SDV ONE (21:35)
[2019-11-16] MEDS: Ibuprofen 800 MG Tab PO PRN ×2 (04:23→18:13)
[2019-11-16] MEDS: Acetaminophen/oxyCODONE 325-5 MG Tab PO PRN ×2 (04:24→18:13)
[2019-11-16] MEDS: Docusate Sodium 100 MG Cap PO SCH ×2 (09:11→21:02)
[2019-11-16] MEDS: NIFEdipine 30 MG Tab.ER PO SCH (09:12)
[2019-11-16] MEDS: Folic Acid 1 MG Tab PO SCH ×2 (09:13→21:02)
[2019-11-16] MEDS: levETIRAcetam 500 MG Tab PO SCH ×2 (09:15→21:03)
[2019-11-16] MEDS: Prenatal Multivitamin and Multimineral with Iron Tab PO SCH (09:17)
--- NOTE | 2019-11-16 10:04 | PCM.PNPP ---
- General Info Date of Service: 11/15/19 Functional Status: Reports: Pain Controlled - Review of Systems General: Reports: No Symptoms HEENT: Reports: No Symptoms Pulmonary: Reports: No Symptoms Cardiovascular: Reports: No Symptoms Gastrointestinal: Reports: No Symptoms Genitourinary: Reports: No Symptoms Musculoskeletal: Reports: No Symptoms Skin: Reports: No Symptoms Neurological: Reports: No Symptoms Psychiatric: Reports: No Symptoms - General Info Date of Service: 11/15/19 - Patient Data Vital Signs - Most Recent: Last Vital Signs Temp 36.4 C 11/16/19 08:35 Pulse 93 11/16/19 08:35 Resp 18 11/16/19 08:35 BP 133/83 11/16/19 09:12 Pulse Ox 97 11/16/19 08:35 Weight - Most Recent: 80.286 kg I&O - Last 24 Hours: Intake & Output 11/15/19 11/16/19 11/16/19 22:59 06:59 14:59 Output Total 1000 900 Balance -1000 -900 Lab Results - Last 24 Hours: Laboratory Results - last 24 hr 11/13/19 Range/Units 16:21 RPR Non Reactive (NonRea<1:1) Med Orders - Current: Current Medications Bisacodyl (Dulcolax) 10 mg RECTAL ONETIME PRN PRN Reason: Constipation Diphenhydramine HCl (Benadryl) 25 mg IVPUSH Q6H PRN PRN Reason: Itching or Nausea Last Admin: 11/15/19 16:35 Dose: 25 mg Docusate Sodium (Colace) 100 mg PO BID KRUNAL Last Admin: 11/16/19 09:11 Dose: 100 mg Emollient Ointment (Lansinoh Hpa) 0 gm TOP ASDIRECTED PRN PRN Reason: Sore Nipples Fentanyl (Sublimaze) 50 mcg IVPUSH Q1H PRN PRN Reason: Pain (severe 7-10) Tranexamic Acid 1,000 mg/ (Sodium Chloride) 110 mls @ 660 mls/hr IV ONETIME PRN PRN Reason: Bleeding Lactated Ringer's (Ringers, Lactated) 1,000 mls @ 125 mls/hr IV ASDIRECTED KRUNAL Ibuprofen (Motrin) 800 mg PO Q8H PRN PRN Reason: mild pain or fever Last Admin: 11/16/19 04:23 Dose: 800 mg Methylergonovine Maleate (Methergine) 0.2 mg IM ONETIME PRN PRN Reason: Excessive Vaginal Bleeding Misoprostol (Cytotec) 1,000 mcg RECTAL ONETIME PRN PRN Reason: excessive bleeding Nalbuphine HCl (Nubain) 5 mg IVPUSH ASDIRECTED PRN PRN Reason: Itching Last Admin: 11/15/19 01:35 Dose: 5 mg Nifedipine (Procardia Xl) 60 mg PO DAILY [facility] Last Admin: 11/16/19 09:12 Dose: 60 mg Ondansetron HCl (Zofran) 4 mg IVPUSH Q4H PRN PRN Reason: Nausea/Vomiting Oxycodone/Acetaminophen (Percocet 325-5 Mg) 1 tab PO Q4H PRN PRN Reason: Pain (moderate 4-6) Last Admin: 11/16/19 04:24 Dose: 1 tab Oxycodone/Acetaminophen (Percocet 325-5 Mg) 2 tab PO Q4H PRN PRN Reason: Pain (moderate 4-6) Oxytocin (Pitocin) 10 unit IM ASDIRECTED PRN PRN Reason: Excessive Vaginal Bleeding Levetiracetam 500 Mg (Tab) 1,000 each PO BID [facility] Last Admin: 11/16/19 09:15 Dose: 2 each Folic Acid 1 Mg Tab 2 each PO BID [facility] Last Admin: 11/16/19 09:13 Dose: 2 each Multivitamin And Multimineral With Iron Tab 1 each PO DAILY [facility] Last Admin: 11/16/19 09:17 Dose: 1 each Sodium Chloride (Saline Flush) 10 ml FLUSH ASDIRECTED PRN PRN Reason: Keep Vein Open Sodium Chloride (Saline Flush) 2.5 ml FLUSH ASDIRECTED PRN PRN Reason: Keep Vein Open Sodium Chloride (Normal Saline) 10 ml IV ASDIRECTED PRN PRN Reason: IV Use Discontinued Medications Butorphanol Tartrate (Stadol) 1 mg IVPUSH Q1H PRN PRN Reason: Pain Carboprost Tromethamine (Hemabate Ds) 250 mcg IM ASDIRECTED PRN PRN Reason: Post Hemorrhage Cefazolin Sodium (Ancef) Confirm Administered Dose 2 gm .ROUTE .STK-MED ONE Stop: 11/14/19 17:06 Citric Acid/Sodium Citrate (Bicitra Solution) Confirm Administered Dose 30 ml .ROUTE .STK-MED ONE Stop: 11/14/19 17:08 Last Admin: 11/15/19 20:29 Dose: Not Given Diphenhydramine HCl (Benadryl) 25 mg IVPUSH Q4H PRN PRN Reason: Itching Stop: 11/15/19 17:43 Fentanyl (Sublimaze) Confirm Administered Dose 300 mcg .ROUTE .STK-MED ONE Stop: 11/14/19 14:08 Last Admin: 11/15/19 20:29 Dose: Not Given Tranexamic Acid 1,000 mg/ (Sodium Chloride) 110 mls @ 660 mls/hr IV ONETIME PRN PRN Reason: Bleeding Lactated Ringer's (Ringers, Lactated) 1,000 mls @ 150 mls/hr IV ASDIRECTED KRUNAL Last Admin: 11/14/19 15:00 Dose: 150 mls/hr Oxytocin/Sodium Chloride (Oxytocin 30 Unit/500 Ml-Ns) 30 unit in 500 mls @ 500 mls/hr IV TITRATE KRUNAL Oxytocin/Sodium Chloride (Oxytocin 30 Unit/500 Ml-Ns) 30 unit in 500 mls @ 2 mls/hr IV TITRATE KRUNAL; Protocol Ropivacaine (Naropin 0.2%) Confirm Administered Dose 100 mls @ as directed .ROUTE .STK-MED ONE Stop: 11/14/19 14:07 Last Admin: 11/15/19 20:29 Dose: Not Given Sodium Chloride (Normal Saline) Confirm Administered Dose 20 mls @ as directed .ROUTE .STK-MED ONE Stop: 11/14/19 17:06 Ketorolac Tromethamine (Toradol) 30 mg IVPUSH Q6H [facility] Stop: 11/15/19 18:01 Last Admin: 11/15/19 21:37 Dose: 30 mg Ketorolac Tromethamine (Toradol) Confirm Administered Dose 30 mg .ROUTE .STK- MED ONE Stop: 11/15/19 21:36 Last Admin: 11/15/19 21:40 Dose: Not Given Lidocaine HCl (Xylocaine 1%) 50 ml INJECT ONETIME PRN PRN Reason: Laceration repair Methylergonovine Maleate (Methergine) 0.2 mg IM ASDIRECTED PRN PRN Reason: Post Hemorrhage Misoprostol (Cytotec) 200 mcg PO ONETIME PRN PRN Reason: Post Hemorrhage Misoprostol (Cytotec) 25 mcg VAG ONETIME PRN PRN Reason: Cervical Ripening Last Admin: 11/14/19 11:05 Dose: 25 mcg Misoprostol (Cytotec) 25 mcg VAG Q4H PRN PRN Reason: Cervical Ripening Last Admin: 11/14/19 11:05 Dose: 25 mcg Misoprostol (Cytotec) 25 mcg PO ONETIME ONE Stop: 11/13/19 18:36 Last Admin: 11/13/19 20:20 Dose: 25 mcg Misoprostol (Cytotec) 25 mcg PO Q4H KRUNAL Last Admin: 11/15/19 20:30 Dose: Not Given Misoprostol (Cytotec) 25 mcg PO ONETIME ONE Stop: 11/15/19 20:32 Morphine Sulfate (Duramorph Pf) Confirm Administered Dose 10 mg .ROUTE .STK-MED ONE Stop: 11/14/19 16:39 Nalbuphine HCl (Nubain) 10 mg IVPUSH Q1H PRN PRN Reason: Pain (severe 7-10) Last Admin: 11/14/19 03:45 Dose: 10 mg Naloxone HCl (Narcan) 0.1 mg IVPUSH ONETIME PRN PRN Reason: Respiratory Depression Stop: 11/15/19 17:43 Nifedipine (Procardia Xl) 60 mg PO ONETIME ONE Stop: 11/13/19 18:33 Last Admin: 11/13/19 18:57 Dose: 60 mg Nifedipine (Procardia Xl) Confirm Administered Dose 60 mg .ROUTE .STK-MED ONE Stop: 11/13/19 18:55 Last Admin: 11/14/19 19:24 Dose: 30 mg Nifedipine (Procardia Xl) 30 mg PO DAILY [facility] Last Admin: 11/15/19 09:16 Dose: 30 mg Nifedipine (Procardia Xl) 30 mg PO ONETIME ONE Stop: 11/15/19 17:34 Last Admin: 11/15/19 17:42 Dose: 30 mg Octyl Cyanoacrylate (Dermabond Advance) Confirm Administered Dose 1 applic .ROUTE .STK-MED ONE Stop: 11/14/19 17:41 Last Admin: 11/15/19 20:29 Dose: Not Given Ondansetron HCl (Zofran) 4 mg IVPUSH Q6H PRN PRN Reason: Nausea/Vomiting Ondansetron HCl (Zofran) Confirm Administered Dose 4 mg .ROUTE .STK-MED ONE Stop: 11/14/19 16:47 Ondansetron HCl (Zofran) 4 mg IVPUSH Q6H PRN PRN Reason: Nausea Oxycodone/Acetaminophen (Percocet 325-5 Mg) 2 tab PO Q6H PRN PRN Reason: Pain (moderate 4-6) Oxytocin (Pitocin) Confirm Administered Dose 20 unit .ROUTE .STK-MED ONE Stop: 11/14/19 16:39 Ropivacaine (Naropin 0.2%) Confirm Administered Dose 20 ml .ROUTE .STK-MED ONE Stop: 11/14/19 14:09 Last Admin: 11/15/19 20:29 Dose: Not Given Sterile Water (Sterile Water For Irrigation) 1,000 ml IRR ASDIRECTED PRN PRN Reason: delivery Terbutaline Sulfate (Brethine) 0.25 mg SUBCUT ASDIRECTED PRN PRN Reason: Tacysystole - Interaction Support Person: - Recovery Exam Fundal Tone: Firm Fundal Level: At Umbilicus Fundal Placement: Midline Lochia Amount: Small Lochia Color: Rubra/Red Perineum Description: Intact, Minimal Bruising/Swelling Other Perinuem Description: labial edema Episiotomy/Laceration: None Bladder Status: Voiding Urinary Elimination: Voided - Exam General: Alert, Oriented HEENT: Pupils Equal Neck: Supple Lungs: Clear to Auscultation, Normal Respiratory Effort Cardiovascular: Regular Rate, Regular Rhythm GI/Abdominal Exam: Normal Bowel Sounds, Soft, Non-Tender, No Organomegaly, No Distention, No Abnormal Bruit, No Mass, Pelvis Stable Extremities: Normal Inspection, Normal Range of Motion, Non-Tender, No Pedal Edema, Normal Capillary Refill Skin: Warm, Dry, Intact Wound/Incisions: Healing Well Neurological: No New Focal Deficit Psy/Mental Status: Alert, Normal Affect, Normal Mood - Problem List Review Problem List Initiated/Reviewed/Updated: Yes - My Orders Last 24 Hours: My Active Orders 11/15/19 20:32 Resuscitation Status Routine 11/16/19 09:00 NIFEdipine [Procardia XL] 60 mg PO DAILY - Plan Plan:: This is a 23 years old patient nulliparous she is followed in our clinic primarily by our nurse paper and pulp mill worker Michelle Lubin she is 36+5 she's presented to the clinic for her regular OB visit however during the assessment she found to have an elevated blood pressure and swelling of the leg her blood pressure is ranging between 160/106-150/100. Flexes a +1 the patient denied any headache or any black spontaneous in her vision however because of the elevated blood pressure I am sending the patient to labor and delivery for NST assess and evaluate blood pressure most likely will boni end up admitting the patient for possible induction. Her blood pressure continued to be elevated she may need to have a section as needed
--- NOTE | 2019-11-16 10:05 | PCM.PNPP ---
- General Info Date of Service: 11/16/19 Functional Status: Reports: Pain Controlled - Review of Systems General: Reports: No Symptoms HEENT: Reports: No Symptoms Pulmonary: Reports: No Symptoms Cardiovascular: Reports: No Symptoms Gastrointestinal: Reports: No Symptoms Genitourinary: Reports: No Symptoms Musculoskeletal: Reports: No Symptoms Skin: Reports: No Symptoms Neurological: Reports: No Symptoms Psychiatric: Reports: No Symptoms - General Info Date of Service: 11/16/19 - Patient Data Vital Signs - Most Recent: Last Vital Signs Temp 36.4 C 11/16/19 08:35 Pulse 93 11/16/19 08:35 Resp 18 11/16/19 08:35 BP 133/83 11/16/19 09:12 Pulse Ox 97 11/16/19 08:35 Weight - Most Recent: 80.286 kg I&O - Last 24 Hours: Intake & Output 11/15/19 11/16/19 11/16/19 22:59 06:59 14:59 Output Total 1000 900 Balance -1000 -900 Lab Results - Last 24 Hours: Laboratory Results - last 24 hr 11/13/19 Range/Units 16:21 RPR Non Reactive (NonRea<1:1) Med Orders - Current: Current Medications Bisacodyl (Dulcolax) 10 mg RECTAL ONETIME PRN PRN Reason: Constipation Diphenhydramine HCl (Benadryl) 25 mg IVPUSH Q6H PRN PRN Reason: Itching or Nausea Last Admin: 11/15/19 16:35 Dose: 25 mg Docusate Sodium (Colace) 100 mg PO BID KRUNAL Last Admin: 11/16/19 09:11 Dose: 100 mg Emollient Ointment (Lansinoh Hpa) 0 gm TOP ASDIRECTED PRN PRN Reason: Sore Nipples Fentanyl (Sublimaze) 50 mcg IVPUSH Q1H PRN PRN Reason: Pain (severe 7-10) Tranexamic Acid 1,000 mg/ (Sodium Chloride) 110 mls @ 660 mls/hr IV ONETIME PRN PRN Reason: Bleeding Lactated Ringer's (Ringers, Lactated) 1,000 mls @ 125 mls/hr IV ASDIRECTED KRUNAL Ibuprofen (Motrin) 800 mg PO Q8H PRN PRN Reason: mild pain or fever Last Admin: 11/16/19 04:23 Dose: 800 mg Methylergonovine Maleate (Methergine) 0.2 mg IM ONETIME PRN PRN Reason: Excessive Vaginal Bleeding Misoprostol (Cytotec) 1,000 mcg RECTAL ONETIME PRN PRN Reason: excessive bleeding Nalbuphine HCl (Nubain) 5 mg IVPUSH ASDIRECTED PRN PRN Reason: Itching Last Admin: 11/15/19 01:35 Dose: 5 mg Nifedipine (Procardia Xl) 60 mg PO DAILY [facility] Last Admin: 11/16/19 09:12 Dose: 60 mg Ondansetron HCl (Zofran) 4 mg IVPUSH Q4H PRN PRN Reason: Nausea/Vomiting Oxycodone/Acetaminophen (Percocet 325-5 Mg) 1 tab PO Q4H PRN PRN Reason: Pain (moderate 4-6) Last Admin: 11/16/19 04:24 Dose: 1 tab Oxycodone/Acetaminophen (Percocet 325-5 Mg) 2 tab PO Q4H PRN PRN Reason: Pain (moderate 4-6) Oxytocin (Pitocin) 10 unit IM ASDIRECTED PRN PRN Reason: Excessive Vaginal Bleeding Levetiracetam 500 Mg (Tab) 1,000 each PO BID [facility] Last Admin: 11/16/19 09:15 Dose: 2 each Folic Acid 1 Mg Tab 2 each PO BID [facility] Last Admin: 11/16/19 09:13 Dose: 2 each Multivitamin And Multimineral With Iron Tab 1 each PO DAILY [facility] Last Admin: 11/16/19 09:17 Dose: 1 each Sodium Chloride (Saline Flush) 10 ml FLUSH ASDIRECTED PRN PRN Reason: Keep Vein Open Sodium Chloride (Saline Flush) 2.5 ml FLUSH ASDIRECTED PRN PRN Reason: Keep Vein Open Sodium Chloride (Normal Saline) 10 ml IV ASDIRECTED PRN PRN Reason: IV Use Discontinued Medications Butorphanol Tartrate (Stadol) 1 mg IVPUSH Q1H PRN PRN Reason: Pain Carboprost Tromethamine (Hemabate Ds) 250 mcg IM ASDIRECTED PRN PRN Reason: Post Hemorrhage Cefazolin Sodium (Ancef) Confirm Administered Dose 2 gm .ROUTE .STK-MED ONE Stop: 11/14/19 17:06 Citric Acid/Sodium Citrate (Bicitra Solution) Confirm Administered Dose 30 ml .ROUTE .STK-MED ONE Stop: 11/14/19 17:08 Last Admin: 11/15/19 20:29 Dose: Not Given Diphenhydramine HCl (Benadryl) 25 mg IVPUSH Q4H PRN PRN Reason: Itching Stop: 11/15/19 17:43 Fentanyl (Sublimaze) Confirm Administered Dose 300 mcg .ROUTE .STK-MED ONE Stop: 11/14/19 14:08 Last Admin: 11/15/19 20:29 Dose: Not Given Tranexamic Acid 1,000 mg/ (Sodium Chloride) 110 mls @ 660 mls/hr IV ONETIME PRN PRN Reason: Bleeding Lactated Ringer's (Ringers, Lactated) 1,000 mls @ 150 mls/hr IV ASDIRECTED KRUNAL Last Admin: 11/14/19 15:00 Dose: 150 mls/hr Oxytocin/Sodium Chloride (Oxytocin 30 Unit/500 Ml-Ns) 30 unit in 500 mls @ 500 mls/hr IV TITRATE KRUNAL Oxytocin/Sodium Chloride (Oxytocin 30 Unit/500 Ml-Ns) 30 unit in 500 mls @ 2 mls/hr IV TITRATE KRUNAL; Protocol Ropivacaine (Naropin 0.2%) Confirm Administered Dose 100 mls @ as directed .ROUTE .STK-MED ONE Stop: 11/14/19 14:07 Last Admin: 11/15/19 20:29 Dose: Not Given Sodium Chloride (Normal Saline) Confirm Administered Dose 20 mls @ as directed .ROUTE .STK-MED ONE Stop: 11/14/19 17:06 Ketorolac Tromethamine (Toradol) 30 mg IVPUSH Q6H [facility] Stop: 11/15/19 18:01 Last Admin: 11/15/19 21:37 Dose: 30 mg Ketorolac Tromethamine (Toradol) Confirm Administered Dose 30 mg .ROUTE .STK- MED ONE Stop: 11/15/19 21:36 Last Admin: 11/15/19 21:40 Dose: Not Given Lidocaine HCl (Xylocaine 1%) 50 ml INJECT ONETIME PRN PRN Reason: Laceration repair Methylergonovine Maleate (Methergine) 0.2 mg IM ASDIRECTED PRN PRN Reason: Post Hemorrhage Misoprostol (Cytotec) 200 mcg PO ONETIME PRN PRN Reason: Post Hemorrhage Misoprostol (Cytotec) 25 mcg VAG ONETIME PRN PRN Reason: Cervical Ripening Last Admin: 11/14/19 11:05 Dose: 25 mcg Misoprostol (Cytotec) 25 mcg VAG Q4H PRN PRN Reason: Cervical Ripening Last Admin: 11/14/19 11:05 Dose: 25 mcg Misoprostol (Cytotec) 25 mcg PO ONETIME ONE Stop: 11/13/19 18:36 Last Admin: 11/13/19 20:20 Dose: 25 mcg Misoprostol (Cytotec) 25 mcg PO Q4H KRUNAL Last Admin: 11/15/19 20:30 Dose: Not Given Misoprostol (Cytotec) 25 mcg PO ONETIME ONE Stop: 11/15/19 20:32 Morphine Sulfate (Duramorph Pf) Confirm Administered Dose 10 mg .ROUTE .STK-MED ONE Stop: 11/14/19 16:39 Nalbuphine HCl (Nubain) 10 mg IVPUSH Q1H PRN PRN Reason: Pain (severe 7-10) Last Admin: 11/14/19 03:45 Dose: 10 mg Naloxone HCl (Narcan) 0.1 mg IVPUSH ONETIME PRN PRN Reason: Respiratory Depression Stop: 11/15/19 17:43 Nifedipine (Procardia Xl) 60 mg PO ONETIME ONE Stop: 11/13/19 18:33 Last Admin: 11/13/19 18:57 Dose: 60 mg Nifedipine (Procardia Xl) Confirm Administered Dose 60 mg .ROUTE .STK-MED ONE Stop: 11/13/19 18:55 Last Admin: 11/14/19 19:24 Dose: 30 mg Nifedipine (Procardia Xl) 30 mg PO DAILY [facility] Last Admin: 11/15/19 09:16 Dose: 30 mg Nifedipine (Procardia Xl) 30 mg PO ONETIME ONE Stop: 11/15/19 17:34 Last Admin: 11/15/19 17:42 Dose: 30 mg Octyl Cyanoacrylate (Dermabond Advance) Confirm Administered Dose 1 applic .ROUTE .STK-MED ONE Stop: 11/14/19 17:41 Last Admin: 11/15/19 20:29 Dose: Not Given Ondansetron HCl (Zofran) 4 mg IVPUSH Q6H PRN PRN Reason: Nausea/Vomiting Ondansetron HCl (Zofran) Confirm Administered Dose 4 mg .ROUTE .STK-MED ONE Stop: 11/14/19 16:47 Ondansetron HCl (Zofran) 4 mg IVPUSH Q6H PRN PRN Reason: Nausea Oxycodone/Acetaminophen (Percocet 325-5 Mg) 2 tab PO Q6H PRN PRN Reason: Pain (moderate 4-6) Oxytocin (Pitocin) Confirm Administered Dose 20 unit .ROUTE .STK-MED ONE Stop: 11/14/19 16:39 Ropivacaine (Naropin 0.2%) Confirm Administered Dose 20 ml .ROUTE .STK-MED ONE Stop: 11/14/19 14:09 Last Admin: 11/15/19 20:29 Dose: Not Given Sterile Water (Sterile Water For Irrigation) 1,000 ml IRR ASDIRECTED PRN PRN Reason: delivery Terbutaline Sulfate (Brethine) 0.25 mg SUBCUT ASDIRECTED PRN PRN Reason: Tacysystole - Interaction Infant Disposition, : in Room with Family Infant Interaction: Holding Infant Feeding: Attempted ; Nursed Fair/Poor Support Person: - Recovery Exam Fundal Tone: Firm Fundal Level: At Umbilicus Fundal Placement: Midline Lochia Amount: Small Lochia Color: Rubra/Red Perineum Description: Intact, Minimal Bruising/Swelling Other Perinuem Description: labial edema Episiotomy/Laceration: None Bladder Status: Voiding Urinary Elimination: Voided - Exam General: Alert, Oriented HEENT: Pupils Equal Neck: Supple Lungs: Clear to Auscultation, Normal Respiratory Effort Cardiovascular: Regular Rate, Regular Rhythm GI/Abdominal Exam: Normal Bowel Sounds, Soft, Non-Tender, No Organomegaly, No Distention, No Abnormal Bruit, No Mass, Pelvis Stable Extremities: Normal Inspection, Normal Range of Motion, Non-Tender, No Pedal Edema, Normal Capillary Refill Skin: Warm, Dry, Intact Wound/Incisions: Healing Well Neurological: No New Focal Deficit Psy/Mental Status: Alert, Normal Affect, Normal Mood - Problem List Review Problem List Initiated/Reviewed/Updated: Yes - My Orders Last 24 Hours: My Active Orders 11/15/19 20:32 Resuscitation Status Routine 11/16/19 09:00 NIFEdipine [Procardia XL] 60 mg PO DAILY - Assessment Assessment:: Patient is doing well without planning to send her home tomorrow - Plan Plan:: This is a 23 years old patient nulliparous she is followed in our clinic primarily by our nurse manager strategic sourcing Michelle Lubin she is 36+5 she's presented to the clinic for her regular OB visit however during the assessment she found to have an elevated blood pressure and swelling of the leg her blood pressure is ranging between 160/106-150/100. Flexes a +1 the patient denied any headache or any black spontaneous in her vision however because of the elevated blood pressure I am sending the patient to labor and delivery for NST assess and evaluate blood pressure most likely will boni end up admitting the patient for possible induction. Her blood pressure continued to be elevated she may need to have a section as needed
[2019-11-17] MEDS: Acetaminophen/oxyCODONE 325-5 MG Tab PO PRN (05:32)
--- NOTE | 2019-11-17 07:43 | PCM.PNPP ---
- General Info Date of Service: 11/17/19 Functional Status: Reports: Pain Controlled - Review of Systems General: Reports: No Symptoms HEENT: Reports: No Symptoms Pulmonary: Reports: No Symptoms Cardiovascular: Reports: No Symptoms Gastrointestinal: Reports: No Symptoms Genitourinary: Reports: No Symptoms Musculoskeletal: Reports: No Symptoms Skin: Reports: No Symptoms Neurological: Reports: No Symptoms Psychiatric: Reports: No Symptoms - General Info Date of Service: 11/17/19 - Patient Data Vital Signs - Most Recent: Last Vital Signs Temp 37.1 C 11/17/19 04:00 Pulse 94 11/17/19 04:00 Resp 18 11/17/19 04:00 BP 129/73 11/17/19 04:00 Pulse Ox 96 11/17/19 04:00 Weight - Most Recent: 80.286 kg Lab Results - Last 24 Hours: Laboratory Results - last 24 hr 11/13/19 Range/Units 16:21 RPR Non Reactive (NonRea<1:1) Med Orders - Current: Current Medications Bisacodyl (Dulcolax) 10 mg RECTAL ONETIME PRN PRN Reason: Constipation Diphenhydramine HCl (Benadryl) 25 mg IVPUSH Q6H PRN PRN Reason: Itching or Nausea Last Admin: 11/15/19 16:35 Dose: 25 mg Docusate Sodium (Colace) 100 mg PO BID [facility] Last Admin: 11/16/19 21:02 Dose: 100 mg Emollient Ointment (Lansinoh Hpa) 0 gm TOP ASDIRECTED PRN PRN Reason: Sore Nipples Fentanyl (Sublimaze) 50 mcg IVPUSH Q1H PRN PRN Reason: Pain (severe 7-10) Tranexamic Acid 1,000 mg/ (Sodium Chloride) 110 mls @ 660 mls/hr IV ONETIME PRN PRN Reason: Bleeding Lactated Ringer's (Ringers, Lactated) 1,000 mls @ 125 mls/hr IV ASDIRECTED KRUNAL Ibuprofen (Motrin) 800 mg PO Q8H PRN PRN Reason: mild pain or fever Last Admin: 11/16/19 18:13 Dose: 800 mg Methylergonovine Maleate (Methergine) 0.2 mg IM ONETIME PRN PRN Reason: Excessive Vaginal Bleeding Misoprostol (Cytotec) 1,000 mcg RECTAL ONETIME PRN PRN Reason: excessive bleeding Nalbuphine HCl (Nubain) 5 mg IVPUSH ASDIRECTED PRN PRN Reason: Itching Last Admin: 11/15/19 01:35 Dose: 5 mg Nifedipine (Procardia Xl) 60 mg PO DAILY [facility] Last Admin: 11/16/19 09:12 Dose: 60 mg Ondansetron HCl (Zofran) 4 mg IVPUSH Q4H PRN PRN Reason: Nausea/Vomiting Oxycodone/Acetaminophen (Percocet 325-5 Mg) 1 tab PO Q4H PRN PRN Reason: Pain (moderate 4-6) Last Admin: 11/17/19 05:32 Dose: 1 tab Oxycodone/Acetaminophen (Percocet 325-5 Mg) 2 tab PO Q4H PRN PRN Reason: Pain (moderate 4-6) Oxytocin (Pitocin) 10 unit IM ASDIRECTED PRN PRN Reason: Excessive Vaginal Bleeding Levetiracetam 500 Mg (Tab) 1,000 each PO BID [facility] Last Admin: 11/16/19 21:03 Dose: 1 each Folic Acid 1 Mg Tab 2 each PO BID [facility] Last Admin: 11/16/19 21:02 Dose: 2 each Multivitamin And Multimineral With Iron Tab 1 each PO DAILY [facility] Last Admin: 11/16/19 09:17 Dose: 1 each Sodium Chloride (Saline Flush) 10 ml FLUSH ASDIRECTED PRN PRN Reason: Keep Vein Open Sodium Chloride (Saline Flush) 2.5 ml FLUSH ASDIRECTED PRN PRN Reason: Keep Vein Open Sodium Chloride (Normal Saline) 10 ml IV ASDIRECTED PRN PRN Reason: IV Use Discontinued Medications Butorphanol Tartrate (Stadol) 1 mg IVPUSH Q1H PRN PRN Reason: Pain Carboprost Tromethamine (Hemabate Ds) 250 mcg IM ASDIRECTED PRN PRN Reason: Post Hemorrhage Cefazolin Sodium (Ancef) Confirm Administered Dose 2 gm .ROUTE .STK-MED ONE Stop: 11/14/19 17:06 Citric Acid/Sodium Citrate (Bicitra Solution) Confirm Administered Dose 30 ml .ROUTE .STK-MED ONE Stop: 11/14/19 17:08 Last Admin: 11/15/19 20:29 Dose: Not Given Diphenhydramine HCl (Benadryl) 25 mg IVPUSH Q4H PRN PRN Reason: Itching Stop: 11/15/19 17:43 Fentanyl (Sublimaze) Confirm Administered Dose 300 mcg .ROUTE .STK-MED ONE Stop: 11/14/19 14:08 Last Admin: 11/15/19 20:29 Dose: Not Given Tranexamic Acid 1,000 mg/ (Sodium Chloride) 110 mls @ 660 mls/hr IV ONETIME PRN PRN Reason: Bleeding Lactated Ringer's (Ringers, Lactated) 1,000 mls @ 150 mls/hr IV ASDIRECTED KRUNAL Last Admin: 11/14/19 15:00 Dose: 150 mls/hr Oxytocin/Sodium Chloride (Oxytocin 30 Unit/500 Ml-Ns) 30 unit in 500 mls @ 500 mls/hr IV TITRATE KRUNAL Oxytocin/Sodium Chloride (Oxytocin 30 Unit/500 Ml-Ns) 30 unit in 500 mls @ 2 mls/hr IV TITRATE KRUNAL; Protocol Ropivacaine (Naropin 0.2%) Confirm Administered Dose 100 mls @ as directed .ROUTE .STK-MED ONE Stop: 11/14/19 14:07 Last Admin: 11/15/19 20:29 Dose: Not Given Sodium Chloride (Normal Saline) Confirm Administered Dose 20 mls @ as directed .ROUTE .STK-MED ONE Stop: 11/14/19 17:06 Ketorolac Tromethamine (Toradol) 30 mg IVPUSH Q6H [facility] Stop: 11/15/19 18:01 Last Admin: 11/15/19 21:37 Dose: 30 mg Ketorolac Tromethamine (Toradol) Confirm Administered Dose 30 mg .ROUTE .STK- MED ONE Stop: 11/15/19 21:36 Last Admin: 11/15/19 21:40 Dose: Not Given Lidocaine HCl (Xylocaine 1%) 50 ml INJECT ONETIME PRN PRN Reason: Laceration repair Methylergonovine Maleate (Methergine) 0.2 mg IM ASDIRECTED PRN PRN Reason: Post Hemorrhage Misoprostol (Cytotec) 200 mcg PO ONETIME PRN PRN Reason: Post Hemorrhage Misoprostol (Cytotec) 25 mcg VAG ONETIME PRN PRN Reason: Cervical Ripening Last Admin: 11/14/19 11:05 Dose: 25 mcg Misoprostol (Cytotec) 25 mcg VAG Q4H PRN PRN Reason: Cervical Ripening Last Admin: 11/14/19 11:05 Dose: 25 mcg Misoprostol (Cytotec) 25 mcg PO ONETIME ONE Stop: 11/13/19 18:36 Last Admin: 11/13/19 20:20 Dose: 25 mcg Misoprostol (Cytotec) 25 mcg PO Q4H KRUNAL Last Admin: 11/15/19 20:30 Dose: Not Given Misoprostol (Cytotec) 25 mcg PO ONETIME ONE Stop: 11/15/19 20:32 Morphine Sulfate (Duramorph Pf) Confirm Administered Dose 10 mg .ROUTE .STK-MED ONE Stop: 11/14/19 16:39 Nalbuphine HCl (Nubain) 10 mg IVPUSH Q1H PRN PRN Reason: Pain (severe 7-10) Last Admin: 11/14/19 03:45 Dose: 10 mg Naloxone HCl (Narcan) 0.1 mg IVPUSH ONETIME PRN PRN Reason: Respiratory Depression Stop: 11/15/19 17:43 Nifedipine (Procardia Xl) 60 mg PO ONETIME ONE Stop: 11/13/19 18:33 Last Admin: 11/13/19 18:57 Dose: 60 mg Nifedipine (Procardia Xl) Confirm Administered Dose 60 mg .ROUTE .STK-MED ONE Stop: 11/13/19 18:55 Last Admin: 11/14/19 19:24 Dose: 30 mg Nifedipine (Procardia Xl) 30 mg PO DAILY [facility] Last Admin: 11/15/19 09:16 Dose: 30 mg Nifedipine (Procardia Xl) 30 mg PO ONETIME ONE Stop: 11/15/19 17:34 Last Admin: 11/15/19 17:42 Dose: 30 mg Octyl Cyanoacrylate (Dermabond Advance) Confirm Administered Dose 1 applic .ROUTE .STK-MED ONE Stop: 11/14/19 17:41 Last Admin: 11/15/19 20:29 Dose: Not Given Ondansetron HCl (Zofran) 4 mg IVPUSH Q6H PRN PRN Reason: Nausea/Vomiting Ondansetron HCl (Zofran) Confirm Administered Dose 4 mg .ROUTE .STK-MED ONE Stop: 11/14/19 16:47 Ondansetron HCl (Zofran) 4 mg IVPUSH Q6H PRN PRN Reason: Nausea Oxycodone/Acetaminophen (Percocet 325-5 Mg) 2 tab PO Q6H PRN PRN Reason: Pain (moderate 4-6) Oxytocin (Pitocin) Confirm Administered Dose 20 unit .ROUTE .STK-MED ONE Stop: 11/14/19 16:39 Ropivacaine (Naropin 0.2%) Confirm Administered Dose 20 ml .ROUTE .STK-MED ONE Stop: 11/14/19 14:09 Last Admin: 11/15/19 20:29 Dose: Not Given Sterile Water (Sterile Water For Irrigation) 1,000 ml IRR ASDIRECTED PRN PRN Reason: delivery Terbutaline Sulfate (Brethine) 0.25 mg SUBCUT ASDIRECTED PRN PRN Reason: Tacysystole - Interaction Infant Disposition, : in Room with Family Interaction: Holding Feeding: Attempted ; Nursed Fair/Poor Support Person: - Recovery Exam Fundal Tone: Firm Fundal Level: 1 Fingerbreadths Below Umbilicus Fundal Placement: Midline Lochia Amount: Scant Lochia Color: Rubra/Red Perineum Description: Intact, Minimal Bruising/Swelling Other Perinuem Description: labial edema Episiotomy/Laceration: None Bladder Status: Voiding Urinary Elimination: Voided - Exam General: Alert, Oriented HEENT: Pupils Equal Neck: Supple Lungs: Clear to Auscultation, Normal Respiratory Effort Cardiovascular: Regular Rate, Regular Rhythm GI/Abdominal Exam: Normal Bowel Sounds, Soft, Non-Tender, No Organomegaly, No Distention, No Abnormal Bruit, No Mass, Pelvis Stable Extremities: Normal Inspection, Normal Range of Motion, Non-Tender, No Pedal Edema, Normal Capillary Refill Skin: Warm, Dry, Intact Wound/Incisions: Healing Well Neurological: No New Focal Deficit Psy/Mental Status: Alert, Normal Affect, Normal Mood - Problem List Review Problem List Initiated/Reviewed/Updated: Yes - My Orders Last 24 Hours: My Active Orders 11/16/19 09:00 NIFEdipine [Procardia XL] 60 mg PO DAILY - Assessment Assessment:: Patient is doing well without planning to send her home tomorrow - Plan Plan:: This is a 23 years old patient nulliparous she is followed in our clinic primarily by our nurse field service technician Michelle Lubin she is 36+5 she's presented to the clinic for her regular OB visit however during the assessment she found to have an elevated blood pressure and swelling of the leg her blood pressure is ranging between 160/106-150/100. Flexes a +1 the patient denied any headache or any black spontaneous in her vision however because of the elevated blood pressure I am sending the patient to labor and delivery for NST assess and evaluate blood pressure most likely will boni end up admitting the patient for possible induction. Her blood pressure continued to be elevated she may need to have a section as needed
[2019-11-17] MEDS: NIFEdipine 30 MG Tab.ER PO SCH (10:56)
[2019-11-17] MEDS: Folic Acid 1 MG Tab PO SCH (10:56)
[2019-11-17] MEDS: Docusate Sodium 100 MG Cap PO SCH (10:56)
[2019-11-17] MEDS: levETIRAcetam 500 MG Tab PO SCH (10:57)
[2019-11-17] MEDS: Prenatal Multivitamin and Multimineral with Iron Tab PO SCH (10:58)
[2019-11-17] MEDS: Ibuprofen 800 MG Tab PO PRN (11:11)
== END 2019-11-17 11:57 | disposition home or self-care (01) | DRG 788 ==
LOC: MW.OBCHECK 15:42 → MW.OB 15:42 → MW.OBCHECK 18:27 → MW.OB 18:28 → OBSVTOIN 11-14 17:33 → MW.OB 11-14 21:46
PROVIDERS: ADMIT Obstetrics & Gynecology; ATTEND Obstetrics & Gynecology
PROC: 10D00Z1 Extraction of Products of Conception, Low, Open Approach (ICD-10-PCS; principal; 2019-11-14)
PROC: 10907ZC Drainage of Amniotic Fluid, Therapeutic from Products of Conception, Via Natural or Artificial Opening (ICD-10-PCS; 2019-11-14)
PROC: 3E0P7VZ Introduction of Hormone into Female Reproductive, Via Natural or Artificial Opening (ICD-10-PCS; 2019-11-14)
DX: O13.4 Gestational [pregnancy-induced] hypertension without significant proteinuria, complicating childbirth (principal); Z37.0 Single live birth; Z3A.37 37 weeks gestation of pregnancy; O76 Abnormality in fetal heart rate and rhythm complicating labor and delivery
CPT/HCPCS: 36415; 51702; 59025; 80053; 82570; 84156; 84550; 85014; 85018; 85025; 85027; 86593; 86850; 86900; 86901; A9270-GY; J0690; J1200; J1885; J2270; J2300; J2405; J2590; J7120